=== PATIENT | female | born 1985 | race Caucasian/White ===

== ENCOUNTER → 2020-03-02 17:13 | Outpatient (CLI) | payer OTHER, SELFPAY ==
--- NOTE | 2020-03-02 | DI.US.S_ITS ---
PROCEDURE: US OB <= 14 WEEKS FETUS INDICATIONS: SIZE AND DATES OUTSIDE/PRIOR DATING DATA: Last menstrual period (LMP): 01/09/20. LMP-based estimated date of delivery (NIDIA): 10/15/20. First dating scan (date and location): 03/02/20. Estimated date of delivery (NIDIA) from first dating scan: 10/15/20. TECHNIQUE: Real-time scanning was performed of the fetus and maternal pelvic organs, with image documentation. Endovaginal scanning was also performed to better visualize the fetus and maternal ovaries. COMPARISON: None. FINDINGS: Embryo: [place]-rump length measures 14 mm corresponding to 7 weeks 4 days. Heart rate measures 157 beats per minute. NIDIA is 10/15/20. Measurement variability in dating: +/- 4 weeks by LMP, +/- 7 days by mean sac diameter (use before 6 weeks gestation if crown-rump length not able to be measured), +/- 5 days by crown-rump length (up to 8 weeks 6 days gestation), +/- 7 days by crown-rump length (up to 13 weeks 6 days gestation). Maternal organs: Small right corpus luteal cyst. Left ovary not visualized . Limited images through the kidneys demonstrate no hydronephrosis. IMPRESSION: A 7-week 4-day single living IUP corresponding to ultrasound NIDIA of 10/15/20 which is concordant with provided LMP. Dictated by: Ag Acevedo [facility] Interpreted: Simone Alicia MD on 03/03/2020 at 9:27 Approved by: Simone Alicia M.D. on 03/03/2020 at 11:16
== END ==
PROVIDERS: PCP Nurse Practitioner Family; Referring Provider Family Medicine; Visit Provider Family Medicine
DX: Z36.87 Encounter for antenatal screening for uncertain dates (principal); Z3A.01 Less than 8 weeks gestation of pregnancy
CPT/HCPCS: 76801

== ENCOUNTER → 2020-05-20 07:40 | Outpatient (CLI) | payer OTHER, SELFPAY ==
--- NOTE | 2020-05-20 | DI.US.S_ITS ---
PROCEDURE: US OB >= 14 WEEKS FETUS INDICATIONS: 20 week Anatomy scan OUTSIDE/PRIOR DATING DATA: Last menstrual period (LMP): January 09, 2020 LMP-based estimated date of delivery (NIDIA): October 15, 2020 First dating scan (date and location): March 02, 2020 Estimated date of delivery (NIDIA) from first dating scan: October 15, 2020 TECHNIQUE: Real-time scanning was performed of the fetus, with image documentation and biometric measurements. COMPARISON: [facility], OB <= 14 WEEKS FETUS, 03/02/2020, 17:26. FINDINGS: General: A single live intrauterine gestation is present. Presentation: Variable. Placenta: Placental position is posterior. The placenta is low lying, with the inferior edge of the placenta seen approximately 1 centimeter from the internal cervical os. Amniotic fluid index: 10.1 cm, normal range is 5-24 cm. heart rate: 149 beats per minute. Maternal cervical canal: 4 cm long. Normal lower limit is 2.5 cm. biometrics: Biparietal diameter: 4.44 centimeters equals 19 weeks 3 days Head circumference: 16.9 centimeters equals 19 weeks 4 days Abdominal circumference: 13.53 centimeters equals 19 weeks 0 days Femur length: 2.72 centimeters equals 18 weeks 2 days Estimated gestational age from initial scan: 18 weeks 6 days Composite gestational age from present scan: 19 weeks 1 day Estimated weight and percentile: 257 grams, 41st percentile Measurement variability for biometric dating: +/- 7 days from 14 weeks to 15 weeks 6 days gestation, +/- 10 days from 16 weeks to 21 weeks 6 days gestation, +/- 2 weeks from 22 weeks to 27 weeks 6 days gestation, +/- 3 weeks for 28 weeks gestation or later. weight reference: 4500 g or EFW >90/95% is considered macrosomia or large for gestational age. EFW <10% is small for gestational age. EFW 5% or less is considered intra-uterine growth restriction. Anatomic survey: Neuro: Ventricles are non-dilated at less than 10 mm. Cisterna magna is normal at 3-11 mm. Cerebellum is normal in size and morphology. Nuchal skin fold: Normal at less than 6 mm between 14-21 weeks gestational age. Face: Nose and lips, facial profile are normal. Spine: No evidence for spina bifida. Heart: 4-chambered heart is present, with normal ventricular outflow tracts. Diaphragm: Diaphragm is intact. Stomach: Left-sided stomach is present. Kidneys: No hydronephrosis. Normal is less than 5 mm in 2nd trimester, less than 7 mm in 3rd trimester. Cord: 3-vessel cord has orthotopic insertion. Bladder: Normal in size. Extremities: All 4 extremities identified. IMPRESSION: No anatomic abnormalities are identified. Normal interval growth when compared to the prior ultrasound examination. Low lying placenta, without placenta previa. The inferior edge of the placenta is seen 1 centimeter from the internal cervical os. Dictated by: Rober Davison M.D. on 05/20/2020 at 8:47 Approved by: Rober Davison M.D. on 05/20/2020 at 8:51
== END ==
PROVIDERS: Referring Provider Family Medicine; Visit Provider Family Medicine
DX: Z36.89 Encounter for other specified antenatal screening (principal); Z3A.19 19 weeks gestation of pregnancy
CPT/HCPCS: 76811

== ENCOUNTER → 2020-06-24 08:17 | Outpatient (CLI) | payer OTHER, SELFPAY ==
--- NOTE | 2020-06-24 | DI.US.S_ITS ---
PROCEDURE: US OB LIMITED INDICATIONS: LOW LYING PLACENTA OUTSIDE/PRIOR DATING DATA: Last menstrual period (LMP): 01/09/2020 LMP-based estimated date of delivery (NIDIA): 10/15/2020 First dating scan (date and location): 03/02/2020 Estimated date of delivery (NIDIA) from first dating scan: 10/15/2020 TECHNIQUE: Real-time scanning was performed of the fetus, with image documentation. COMPARISON: [facility], OB <= 14 WEEKS FETUS, 03/02/2020, 17:26. [facility], OB >= 14 WEEKS FETUS, 05/20/2020, 8:02. FINDINGS: A single live intrauterine gestation is present. Presentation: Vertex. Placenta: Placental position is posterior, without previa. The placenta is mildly low lying, although the inferior edge of the placenta is now measured to be 2.5 cm from the internal cervical os. Amniotic fluid index: 12.1 cm, normal range is 5-24 cm. heart rate: 144 beats per minute. Maternal cervical canal: 3.6 cm long. Normal lower limit is 2.5 cm. Estimated gestational age from initial scan: 23 weeks 6 days. IMPRESSION: The inferior edge of the placenta is 2.5 cm from the internal cervical os. Dictated by: Rober Davison M.D. on 06/24/2020 at 9:56 Approved by: Rober Davison M.D. on 06/24/2020 at 9:58
== END ==
PROVIDERS: PCP Family Medicine; Referring Provider Family Medicine; Visit Provider Family Medicine
DX: O44.42 Low lying placenta NOS or without hemorrhage, second trimester (principal); Z3A.23 23 weeks gestation of pregnancy
CPT/HCPCS: 76815

== ENCOUNTER → 2020-07-20 09:08 | Outpatient (CLI) | payer OTHER, SELFPAY ==
--- NOTE | 2020-07-20 | DI.US.S_ITS ---
PROCEDURE: US OB LIMITED INDICATIONS: LOW LYING PLACENTA WITHOUT HEMORRHAGE OUTSIDE/PRIOR DATING DATA: Last menstrual period (LMP): 01/09/2020 . LMP-based estimated date of delivery (NIDIA): 10/15/2020 . First dating scan (date and location): 03/02/2020 . Estimated date of delivery (NIDIA) from first dating scan: 10/15/2020 . TECHNIQUE: Real-time scanning was performed of the fetus, with image documentation and biometric measurements. Endovaginal scanning: No COMPARISON: [facility], OB LIMITED, 06/24/2020, 8:47. FINDINGS: General: A single living intrauterine gestation is present. Presentation: Vertex. Placenta: Placental position is posterior , without previa with the inferior margin of the placenta roughly 2.8 cm above the internal cervical os. Amniotic fluid index: 18.2 cm, normal range is 5-24 cm. heart rate: 158 beats per minute. Maternal cervical canal: 3.6 cm long. Normal lower limit is 2.5 cm. Estimated gestational age from initial scan: 27 weeks 4 days IMPRESSION: 1. Single living IUP redemonstrated and the inferior margin of the placenta is roughly 2.8 cm above the internal cervical os. Dictated by: Ag Acevedo [facility] Interpreted: Rebel Mcleod MD on 07/20/2020 at 10:06 Approved by: Rebel Mcleod M.D. on 07/20/2020 at 12:49
== END ==
PROVIDERS: PCP Family Medicine; Referring Provider Family Medicine; Visit Provider Family Medicine
DX: O44.42 Low lying placenta NOS or without hemorrhage, second trimester (principal); Z3A.27 27 weeks gestation of pregnancy
CPT/HCPCS: 76815